=== PATIENT | female | born 1945 | race Caucasian/White ===

== ENCOUNTER 2018-08-29 10:54 | Emergency (ER) | payer OTHER ==
[~2018-08-29] VITALS: Ht 162.6 cm; Wt 80.7 kg
[2018-08-29] MEDS ORDERED: COZAAR25 MG PO (11:21)
[2018-08-29] MEDS ORDERED: SYNTHROID50 MCG PO (11:21)
[2018-08-29] MEDS ORDERED: METOPROLOL SUCC25 MG PO (11:22)
== END 2018-08-29 16:09 | disposition home or self-care (01) ==
LOC: ER 10:54
DX: B34.9 Viral infection, unspecified (principal); J11.1 Influenza due to unidentified influenza virus with other respiratory manifestations

== ENCOUNTER 2022-01-14 07:45 | Inpatient (IN) | payer OTHER ==
[~2022-01-14] VITALS: Ht 162.6 cm; Wt 72.6 kg
[~2022-01-14 07:45] MED LIST: COZAAR25 MG PO; METOPROLOL SUCC25 MG PO; SYNTHROID50 MCG PO
[2022-01-15] MEDS ORDERED: GABAPENTIN100 M2 (13:09)
[2022-01-15] MEDS ORDERED: ZANAFLEX2 MG (13:09)
[2022-01-15] MEDS ORDERED: CELECOXIB200 MG (13:09)
[2022-01-15] MEDS ORDERED: ALENDRONATE SOD70 MG (13:10)
== END 2022-01-17 18:20 | DRG 470 ==
LOC: SURH 01-15 06:25 → O/R 01-15 06:25 → SURH 01-15 07:45
PROVIDERS: ADMIT Orthopaedic Surgery; ATTEND Orthopaedic Surgery
PROC: 0SRD0J9 Replacement of Left Knee Joint with Synthetic Substitute, Cemented, Open Approach (ICD-10-PCS; principal; 2022-01-15 16:30)
DX: M17.12 Unilateral primary osteoarthritis, left knee (principal); D62 Acute posthemorrhagic anemia; M85.662 Other cyst of bone, left lower leg; E03.8 Other specified hypothyroidism; I10 Essential (primary) hypertension